=== PATIENT | female | born 2000 | race African-American/Black ===

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

== ENCOUNTER 2022-08-30 12:38 | Emergency (ER) | payer OTHER ==
[2022-08-30] MEDS ORDERED: Ketorolac Tromethamine 30 MG/ML VIAL ONE (14:08)
== END 2022-08-30 14:18 | disposition home or self-care (01) ==
LOC: CSHERS 12:38
DX: S59.902A Unspecified injury of left elbow, initial encounter (principal); W19.XXXA Unspecified fall, initial encounter
CPT/HCPCS: 96372; J1885

== ENCOUNTER 2023-10-11 17:45 | Emergency (ER) | payer OTHER, SELFPAY ==
[2023-10-11 19:10] LABS: #Basophils 0.03 10x3/uL (0.0-0.2); #Eosinphils 0.14 10x3/uL (0.0-0.5); #Monocytes 0.49 10x3/uL (0.0-1.1); %Basophils 0.3 % (0.0-2.0); %Eosinophils 1.6 % (0.0-6.0); %Lymphocytes 26.8 % (18.0-47.0); %Monocytes 5.6 % (0.0-10.0); %Neutrophils 65.5 % (40.0-75.0); Hematocrit 30.8 % (34.9-44.5); Hemoglobin 10.6 g/dL (12.0-15.5); Mean Corpuscular HGB CONC 34.4 g/dL (32.0-36.0); Mean Corpuscular Hemoglobin 31.2 pg (27.0-33.0); Mean Corpuscular Volume 90.6 fl (81.6-98.3); Mean Platelet Volume 9.2 fl (7.4-10.4); Platelet Count 273 10x3/uL (150-450); RBC Distribution Width 13.6 % (11.5-14.5); White Blood Cell (WBC) Count 8.7 10x3/uL (3.5-10.5)
[2023-10-11 19:17] LABS: BHCG - Serum POSITIVE (NEGATIVE); Pregs Control Background? CLEAR/WHITE (CLR/WHITE); Pregs Control Bar Appear? YES (CONTROL BAR)
[2023-10-11 19:24] LABS: ALT (SGPT) Less than 7 U/L (8-55); AST (SGOT) 11 U/L (5-34); Albumin 3.2 g/dL (3.5-5.0); Alkaline Phosphatase 36 U/L (40-110); Anion Gap 9 mmol/L (10-20); BUN (Urea Nitrogen) 9 mg/dL (7.0-18.7); Bilirubin, Total 0.2 mg/dL (0.2-1.2); Calc. Creatinine Clearance 0 mL/min (70-130); Calcium 8.7 mg/dL (7.8-10.44); Carbon Dioxide 25 mmol/L (22-29); Chloride 108 mmol/L (98-107); Estimated GFR 132; Globulin 3.2 g/dL (2.4-3.5); Glucose 90 mg/dL (70-105); Lipase 13 U/L (8-78); Potassium 3.7 mmol/L (3.5-5.1); Protein, Total 6.4 g/dL (6.0-8.3); Sodium 138 mmol/L (136-145)
== END 2023-10-11 20:53 | disposition home or self-care (01) ==
LOC: CSHERS 17:45
DX: O99.891 Other specified diseases and conditions complicating pregnancy (principal); R10.10 Upper abdominal pain, unspecified; Z3A.01 Less than 8 weeks gestation of pregnancy
CPT/HCPCS: 36415; 80053; 83690; 84702; 84703; 85025; 99284

== ENCOUNTER 2023-11-22 09:38 | Emergency (ER) | payer SELFPAY ==
[2023-11-22 10:32] LABS: #Basophils 0.03 10x3/uL (0.0-0.2); #Eosinphils 0.14 10x3/uL (0.0-0.5); #Monocytes 0.47 10x3/uL (0.0-1.1); #Neutrophils 4.69 10x3/uL (1.5-8.4); %Basophils 0.4 % (0.0-2.0); %Eosinophils 1.9 % (0.0-6.0); %Lymphocytes 26.5 % (18.0-47.0); %Monocytes 6.5 % (0.0-10.0); %Neutrophils 64.4 % (40.0-75.0); Hematocrit 29.5 % (34.9-44.5); Hemoglobin 10.3 g/dL (12.0-15.5); Mean Corpuscular HGB CONC 34.9 g/dL (32.0-36.0); Mean Corpuscular Hemoglobin 31.8 pg (27.0-33.0); Mean Platelet Volume 10.1 fL (7.4-10.4); Platelet Count 221 10x3/uL (150-450); RBC Distribution Width 13.2 % (11.5-14.5); Red Blood Cell (RBC) Count 3.24 10x6/uL (3.90-5.03); White Blood Cell (WBC) Count 7.3 10x3/uL (3.5-10.5)
[2023-11-22 10:49] LABS: ALT (SGPT) 7 U/L (8-55); AST (SGOT) 11 U/L (5-34); Albumin 2.9 g/dL (3.5-5.0); Alkaline Phosphatase 39 U/L (40-110); Anion Gap 10 mmol/L (10-20); BUN (Urea Nitrogen) 9 mg/dL (7.0-18.7); Bilirubin, Total Less than 0.2 mg/dL (0.2-1.2); Calc. Creatinine Clearance 0 mL/min (70-130); Calcium 8.5 mg/dL (7.8-10.44); Carbon Dioxide 22 mmol/L (22-29); Chloride 107 mmol/L (98-107); Estimated GFR 135; Globulin 3.2 g/dL (2.4-3.5); Glucose 73 mg/dL (70-105); Potassium 3.8 mmol/L (3.5-5.1); Protein, Total 6.1 g/dL (6.0-8.3); Sodium 135 mmol/L (136-145)
[2023-11-22 12:47] LABS: Bilirubin Neg (Negative); Blood, Urine 10 (Negative); Glucose, Urine (Dipstick) Normal (Negative); Ketone, Urine Negative (Negative); Leukocyte 500 (Negative); Nitrite Negative (Negative); Protein, Urine (Dipstick) 15 mg/dl (Neg-Trace); Specific Gravity, Urine 1.005 (1.005-1.030); Urobilinogen Normal mg/dL (Less than 2)
[2023-11-22 12:49] LABS: Clarity Slightly Cloudy (Clear)
[2023-11-22 13:19] LABS: RBC/HPF 0-3 HPF (0-3)
[2023-11-22 13:20] LABS: Bacteria/HPF 3+ HPF (None Seen); CAUTI Indications for Culture Pelvic or flank pain; Transitional Epithelial 0-3 HPF (None Seen); WBC/HPF 21-50 HPF (0-3)
[2023-11-22 13:23] LABS: Urine Culture Reflex Yes Yes
== END 2023-11-22 13:24 | disposition home or self-care (01) ==
LOC: CSHERS 09:38
DX: O23.42 Unspecified infection of urinary tract in pregnancy, second trimester (principal); N39.0 Urinary tract infection, site not specified; Z3A.18 18 weeks gestation of pregnancy; Z55.6 Problems related to health literacy
CPT/HCPCS: 36415; 76815; 80053; 81001; 85025; 87086

== ENCOUNTER 2024-02-23 11:56 | Inpatient (IN) | payer MEDICAID, OTHER ==
[2024-02-23] MEDS ORDERED: Promethazine HCl 25 MG/ML VIAL IM PRN (12:48)
[2024-02-23] MEDS ORDERED: Acetaminophen 500 MG TAB PO PRN (12:48)
[2024-02-23] MEDS ORDERED: Ondansetron PF 4 MG/2 ML Vial IVP PRN (12:48)
[2024-02-23] MEDS ORDERED: Docusate 100 MG CAP PO PRN (12:48)
[2024-02-23] MEDS ORDERED: hydrALAZINE 20 MG/ML VIAL SLOW IVP PRN (12:48)
[2024-02-23] MEDS: Betamet Acet/Betamet Na Ph 30 MG/5 ML VIAL IM SCH (13:33)
[2024-02-23] MEDS: Lactated Ringer's 1,000 ML IV SCH ×2 (13:34→17:20)
[2024-02-23] MEDS: NIFEdipine 10 MG CAP PO SCH (14:04)
[2024-02-23 14:25] LABS: Hematocrit 28.3 % (34.9-44.5); Hemoglobin 9.4 g/dL (12.0-15.5); Mean Corpuscular HGB CONC 33.2 g/dL (32.0-36.0); Mean Corpuscular Hemoglobin 29.3 pg (27.0-33.0); Mean Corpuscular Volume 88.2 fL (81.6-98.3); Mean Platelet Volume 10.8 fL (7.4-10.4); Platelet Count 216 10x3/uL (150-450); RBC Distribution Width 13.3 % (11.5-14.5); Red Blood Cell (RBC) Count 3.21 10x6/uL (3.90-5.03); White Blood Cell (WBC) Count 7.2 10x3/uL (3.5-10.5)
[2024-02-23] MEDS: Labetalol HCl 100 MG/20 ML VIAL ONE (14:35)
[2024-02-23 14:55] LABS: HBsAg Index 0.22 S/CO (0-0.99); HIV (1/2) Antibody/Antigen Non-Reactive (NonReactive); HIV 1/2 INDEX 0.12 S/CO (<1.00); Hep B Surf Ag - L&D Non-Reactive S/CO (NonReactive)
[2024-02-23 14:56] LABS: Syphilis Antibody Nonreactive (Nonreactive); Syphilis Antibody Index 0.03 S/CO (<1.00 Non-Reactive)
[2024-02-23 14:57] VITALS: BMI 30.8
[2024-02-23 15:14] LABS: Bilirubin Neg (Negative); Blood, Urine Negative (Negative); Clarity Clear (Clear); Glucose, Urine (Dipstick) Normal (Negative); Ketone, Urine Negative (Negative); Leukocyte 25 (Negative); Nitrite Negative (Negative); Protein, Urine (Dipstick) Negative (Neg-Trace); Specific Gravity, Urine 1.005 (1.005-1.030); Urobilinogen Normal mg/dL (Less than 2)
[2024-02-23 15:22] LABS: Amphetamine Not Detected (NotDetected); Barbiturates Screen Not Detected (NotDetected); Benzodiazepine Screen Not Detected (NotDetected); Cocaine Metabolite Screen Not Detected (NotDetected); Methadone Not Detected (NotDetected); Methamphetamine Not Detected (NotDetected); Opiate Screen Not Detected (NotDetected); Oxycodone Screen Not Detected (NotDetected); Phencyclidine (PCP) Not Detected (NotDetected); THC/Cannabinoid Screen Not Detected (NotDetected); Tricyclic Screen Not Detected (NotDetected)
[2024-02-23 15:32] LABS: Fetal Membranes Rupture No Membranes Rupture (No Rupture)
[2024-02-23 15:34] LABS: RBC/HPF None Seen HPF (0-3); Squamous Epithelial 0-3 HPF (0-3); WBC/HPF 0-3 HPF (0-3)
[2024-02-23] MEDS: Labetalol HCl 100 MG/20 ML VIAL SLOW IVP SCH (17:19)
[2024-02-23] MEDS ORDERED: NIFEdipine 10 MG CAP PO SCH (20:00)
[2024-02-23] MEDS: NIFEdipine 10 MG CAP PO PRN (20:13)
[2024-02-24 06:46] LABS: #Basophils 0.01 10x3/uL (0.0-0.2); #Monocytes 0.39 10x3/uL (0.0-1.1); %Basophils 0.1 % (0.0-2.0); %Monocytes 3.7 % (0.0-10.0); %Neutrophils 81.5 % (40.0-75.0); Hematocrit 26.7 % (34.9-44.5); Hemoglobin 8.9 g/dL (12.0-15.5); Mean Corpuscular HGB CONC 33.3 g/dL (32.0-36.0); Mean Corpuscular Hemoglobin 29.3 pg (27.0-33.0); Mean Corpuscular Volume 87.8 fL (81.6-98.3); Mean Platelet Volume 10.6 fL (7.4-10.4); Platelet Count 203 10x3/uL (150-450); RBC Distribution Width 13.8 % (11.5-14.5); Red Blood Cell (RBC) Count 3.04 10x6/uL (3.90-5.03); White Blood Cell (WBC) Count 10.4 10x3/uL (3.5-10.5)
[2024-02-24] MEDS: Acetaminophen 500 MG TAB PO SCH (09:56)
[2024-02-24] MEDS: Iron Sucrose Complex 500 MG in Sodium Chloride 0.9% 250 ML 250 ML IVPB SCH (09:57)
[2024-02-24] MEDS: Fluconazole 100 MG TAB PO SCH (10:17)
[2024-02-24 13:39] LABS: Chlamydia by PCR, Vaginal Swab DETECTED (NotDetected); GC by PCR, Vaginal Swab Not Detected (NotDetected); Tric.vaginalis PCR,Vaginal Sw Not Detected (NotDetected)
[2024-02-24] MEDS ORDERED: Famotidine 20 MG TAB PO SCH (21:00)
[2024-02-25] MEDS ORDERED: Famotidine/PF 20 mg/2ml Vial SLOW IVP PRN (08:04)
[2024-02-25] MEDS ORDERED: Bicitra 30 ML UDCUP PO PRN (08:04)
[2024-02-25] MEDS ORDERED: CEFAZOLIN 2 GM in Sodium Chloride 0.9% 100 ML IVPB SCH (08:15)
[2024-02-25] MEDS ORDERED: Prenatal Vitamin 1 TAB PO SCH (09:00)
[2024-02-25 09:43] LABS: Analyzer IN Cardio CS NICU; RapidComm Collect By OR NURSE
[2024-02-25] MEDS ORDERED: Methylergonovine 0.2 MG/ML VIAL IM PRN (10:28)
[2024-02-25] MEDS ORDERED: Promethazine HCl 25 MG/ML VIAL IM PRN ×2 (10:28→10:29)
[2024-02-25] MEDS ORDERED: hydrALAZINE 20 MG/ML VIAL SLOW IVP PRN (10:28)
[2024-02-25] MEDS ORDERED: Bisacodyl 10 MG SUPP PR PRN (10:28)
[2024-02-25] MEDS ORDERED: Acetaminophen 325 MG TAB PO PRN (10:28)
[2024-02-25] MEDS ORDERED: Ondansetron PF 4 MG/2 ML Vial IVP PRN ×3 (10:28→10:29)
[2024-02-25] MEDS ORDERED: Naloxone HCl 0.4 mg/ml Vial IV PRN (10:29)
[2024-02-25] MEDS ORDERED: Naloxone HCl 0.4 mg/ml Vial IVP PRN ×2 (10:29)
[2024-02-25] MEDS ORDERED: Moisturizing Cream (Eucerin) 113 GM JAR TOP PRN (10:29)
[2024-02-25] MEDS ORDERED: Meperidine HCl/PF 25 MG (1 mL) VIAL SLOW IVP PRN (10:29)
[2024-02-25] MEDS ORDERED: diphenhydrAMINE 50 MG/ML VIAL IVP PRN (10:29)
[2024-02-25] MEDS ORDERED: Communication Order-Pharmacy FS SCH (10:30)
[2024-02-25] MEDS ORDERED: Oxytocin 30 units/NS 500 ML 500 ML IV SCH (10:30)
[2024-02-25] MEDS: fentaNYL 50 mcg/mL 1 mL Vial SLOW IVP PRN (12:00)
[2024-02-25] MEDS: Ketorolac Tromethamine 30 MG (1 mL) VIAL IVP PRN (16:31)
[2024-02-25] MEDS: Glycopyrrolate 0.2 MG/ML 5 ML SYRINGE ONE (19:36)
[2024-02-25] MEDS: Ketorolac Tromethamine 30 MG (1 mL) VIAL ONE (19:36)
[2024-02-25] MEDS: ePHEDrine Sulfate 50 MG/10 ML VIAL ONE (19:36)
[2024-02-25] MEDS: Phenylephrine 40 MG/NS 250 ML 250 ML ONE (19:37)
[2024-02-25] MEDS: Ondansetron PF 4 MG/2 ML Vial ONE ×2 (19:37)
[2024-02-25] MEDS: Oxytocin 10 UNITS/ML VIAL ONE (19:37)
[2024-02-25] MEDS: PHENYLEPHRINE-NS 100 MCG/ML 10 ML SYRINGE ONE (19:38)
[2024-02-25] MEDS: Morphine PF 10 MG/10 ML VIAL ONE (19:38)
[2024-02-25] MEDS: Ketorolac Tromethamine 30 MG (1 mL) VIAL IVP SCH (19:39)
[2024-02-25] MEDS: Boostrix 0.5 ML (Tdap) VIAL (>/=7 yrs of age) IM ONE (19:39)
[2024-02-25] MEDS: Dexmedetomidine 200 MCG/2 ML VIAL ONE (19:39)
[2024-02-25] MEDS: Ferrous Sulfate 325 MG TAB PO SCH (19:41)
[2024-02-26 06:57] LABS: Hematocrit 23.2 % (34.9-44.5); Hemoglobin 7.4 g/dL (12.0-15.5); Mean Corpuscular HGB CONC 31.9 g/dL (32.0-36.0); Mean Corpuscular Hemoglobin 29.2 pg (27.0-33.0); Mean Corpuscular Volume 91.7 fL (81.6-98.3); Mean Platelet Volume 10.2 fL (7.4-10.4); Platelet Count 161 10x3/uL (150-450); Red Blood Cell (RBC) Count 2.53 10x6/uL (3.90-5.03); White Blood Cell (WBC) Count 15.8 10x3/uL (3.5-10.5)
[2024-02-26] MEDS: Fluconazole 100 MG TAB PO SCH (08:55)
[2024-02-26] MEDS: HYDROcodone/Acetaminophen 5/325 mg Tablet PO PRN (09:37)
[2024-02-26] MEDS: Ibuprofen 800 MG TAB PO SCH (13:52)
[2024-02-26] MEDS: Simethicone Chewable 80 MG TAB PO PRN (13:52)
[2024-02-27] MEDS: HYDROcodone/Acetaminophen 5/325 mg Tablet PO PRN (12:31)
[2024-02-27 18:46] VITALS: BP 115/60; TEMP 98.3
== END 2024-02-27 18:10 | disposition home or self-care (01) | DRG 787 ==
LOC: CSHLD/OP 11:56 → CSHLD 13:46 → CSHPED 02-25 12:30
PROVIDERS: ADMIT Student in an Organized Health Care Education/Training Program; ATTEND Student in an Organized Health Care Education/Training Program
PROC: 10D00Z1 Extraction of Products of Conception, Low, Open Approach (ICD-10-PCS; principal; 2024-02-25)
DX: O99.02 Anemia complicating childbirth (principal); D62 Acute posthemorrhagic anemia; D50.9 Iron deficiency anemia, unspecified; O76 Abnormality in fetal heart rate and rhythm complicating labor and delivery; Z3A.32 32 weeks gestation of pregnancy; Z37.0 Single live birth
CPT/HCPCS: 36415; 51702; 76815; 76819; 80306; 81001; 82805; 84112; 85025; 85027; 86762; 86780; 86850; 86900; 86901; 87340; 87389; 87480; 87491; 87510; 87591; 87660; 87661; 88307; 93976; 99285; J0702; J1756; J1885; J2274; J2405; J2590; J3010; J7050; Q9968

== ENCOUNTER 2025-02-21 17:15 | Emergency (ER) | payer OTHER ==
[2025-02-21 18:50] LABS: Pregnancy Test - Urine (BHCG) Negative (Negative); Pregu Control Background? CLEAR/WHITE (CLR/WHITE); Pregu Control Bar Appear? YES (CONTROL BAR)
[2025-02-21 19:04] LABS: Glucose, Urine (Dipstick) Negative (Negative); Leukocyte Small (Negative); Protein, Urine (Dipstick) 100 mg/dL (Neg-Trace); Specific Gravity, Urine 1.025 (1.005-1.030)
[2025-02-21 19:21] LABS: CAUTI Indications for Culture Pelvic or flank pain
[2025-02-21 19:22] LABS: Bacteria/HPF 2+ HPF (None Seen); Mucous/LPF 4+ LPF (<2+)
[2025-02-21 19:24] LABS: Urine Culture Reflex Yes Yes
[2025-02-21] MEDS ORDERED: metroNIDAZOLE 500 MG TAB ONE (19:26)
[2025-02-21] MEDS ORDERED: cefTRIAXone (ROCEPHIN) 500 MG VIAL ONE (19:32)
[2025-02-21] MEDS ORDERED: Azithromycin 250 MG TAB ONE (19:32)
[2025-02-22 01:52] LABS: Chlamydia by PCR, Vaginal Swab DETECTED (NotDetected); GC by PCR, Vaginal Swab DETECTED (NotDetected)
== END 2025-02-21 19:45 | disposition home or self-care (01) ==
LOC: CSHERS 17:15
DX: N76.0 Acute vaginitis (principal); B96.89 Other specified bacterial agents as the cause of diseases classified elsewhere; N39.0 Urinary tract infection, site not specified; I10 Essential (primary) hypertension; Z20.822 Contact with and (suspected) exposure to COVID-19
CPT/HCPCS: 81001; 81025; 87077; 87086; 87428; 87480; 87491; 87510; 87591; 87660; 96372; 99283; J0696